=== PATIENT | male | born 1955 | race Caucasian/White ===

== ENCOUNTER 2017-07-30 02:09 | Inpatient (IN) | payer OTHER ==
[~2017-07-30] VITALS: Ht 182.9 cm; Wt 89.8 kg
[~2017-07-30 02:09] MED LIST: ASPI325T70 PO; BUPR150T8 PO; CETI10CA PO; CHOL100014 PO; COLL30OI TP; DOXA1TAB2 PO; DULO60CA6 PO; ESCITALOPRAM OX20 MG PO; FERR15DR4 PO; FURO-68 PO; HYDR-2758 PO; LEXAPRO10 MG PO; MELO15TA23 PO; METF500T PO; METO50TA6 PO; NITR0.4T22 SL; OLAN15TA9 PO; OLAN20TA7 PO; OLME1TAB25 PO; OMEG1CAP30 AD; OXYC-328 PO; OXYC10TA45 PO; OXYC1TAB7 PO; POTA20TA4 PO; PREG150C PO; PREG75CA PO; SIMV20TA3 PO; TAMS0.4C2 PO; TIZA4TAB8 PO; [UNRECOGNIZED DRUG - CODE] PO
[2017-07-30 05:27] VITALS: BP 167/91
[2017-07-30] MEDS ORDERED: DULO60CA6 PO (05:27)
[2017-07-30] MEDS ORDERED: PREG200C PO (05:27)
[2017-07-30] MEDS ORDERED: GLIM1TAB PO (05:27)
[2017-07-30] MEDS ORDERED: SACU1TAB4 PO (05:27)
[2017-07-30] MEDS ORDERED: ISOS30TA4 PO (05:27)
[2017-07-30] MEDS ORDERED: ARIP20TA5 PO (05:27)
[2017-07-30] MEDS ORDERED: BUPR150T11 PO (05:27)
[2017-07-30] MEDS ORDERED: OXYC-328 PO (05:27)
[2017-07-30] MEDS ORDERED: IMIP50TA3 PO (05:27)
[2017-07-30 07:00] VITALS: BP 164/96
[2017-07-30] MEDS ORDERED: NITROGLYCERIN SUBLINGUAL 0.4 MG BOTTLE OF 25. SL PRN (09:15)
--- NOTE | 2017-07-30 09:24 | PDOC1 ---
History and Physical Date of Admission Date of Admission DATE: 07/30/17 TIME: 09:17 Identification/Chief Complaint Chief Complaint chest pain Problems: Source Source: Chart review, Patient History of Present Illness History of Present Illness presented to the ER at [place] with acute chest pain, He has CAD, s/ p CABG, he has acute short and intermittent pain under his breast area. Sharp pain 7.10 , comes and goes, he cannot reproduce the pain, no associated with eating or exertion or position, He has no hx of GERD pain was across both sides of his chest last night, now just left chest, no radiation to jaw or arm, no diaphoresis or dyspnea Past Medical History Cardiovascular: CAD, CHF, MT, Hyperlipidemia, Other Pulmonary: Pneumonia GI: GERD Heme/Onc: No pertinent hx Hepatobiliary: No pertinent hx Psych: Depression Musculoskeletal: low back pain, Other Rheumatologic: No pertinent hx Infectious disease: No pertinent hx Renal/: No pertinent hx Endocrine: No pertinent hx Past Surgical History Past Surgical History: CABG, Hysterectomy Family History Family History: Other Social History ALCOHOL: none Drugs: None Current Medications Current Medications Current Medications Nicotine (Nicoderm Cq 21mg) 1 patch DAILY TD ; Start 07/30/17 at 09:00 Active Scripts Active Reported Entresto 97 mg-103 mg Tablet (Sacubitril/Valsartan) 1 Each Tablet 1 Each PO BID Bupropion Hcl Sr (Bupropion Hcl) 150 Mg Tablet.er 1 Tab PO DAILY Percocet 10-325 Mg Tablet (Oxycodone/Acetaminophen) 1 Each Tablet 1 Tab PO QID Lyrica (Pregabalin) 200 Mg Capsule 1 Cap PO TID Isosorbide Mononitrate Er (Isosorbide Mononitrate) 30 Mg Tab.er.24h 1 Tab PO DAILY Imipramine Hcl 50 Mg Tablet 50 Mg PO BID Cymbalta (Duloxetine Hcl) 60 Mg Capsule.dr 1 Cap PO DAILY Abilify (Aripiprazole) 20 Mg Tablet 20 Mg PO HS Amaryl (Glimepiride) 1 Mg Tablet 2 Tab PO BID NITROGLYCERIN SubLingual (Nitroglycerin) 0.4 Mg Tab.subl 0.4 Mg SL PRN Zanaflex (Tizanidine Hcl) 4 Mg Tablet 4 Mg PO TID Metoprolol Tartrate 50 Mg Tablet 50 Mg PO BID Simvastatin 20 Mg Tablet 20 Mg PO DAILY Tamsulosin Hcl 0.4 Mg Cap.er.24h 0.4 Mg PO DAILY Klor-Con M20 (Potassium Chloride) 20 Meq Tab.er.prt 20 Meq PO DAILY Lasix (Furosemide) 40 Mg Tablet 40 Mg PO DAILY Aspirin Buffered 325 Mg Tab (Aspirin/Calcium Carbonate/Mag) 325 Mg Tablet 325 Mg PO DAILY Allergies Allergies: Coded Allergies: gabapentin (Verified Allergy, Mild, 12/27/13) oxymorphone (Verified Allergy, Unknown, 07/30/17) ROS General: No: Chills, Night Sweats, Fatigue, Malaise, Appetite, Other PSYCHOLOGICAL ROS: No: Anxiety, Behavioral Disorder, Concentration difficultie , Decreased libido, Depression, Disorientation, Hallucinations, Hostility, Irritablity, Memory difficulties, Mood Swings, Obsessive thoughts, Physical abuse, Sexual abuse, Sleep disturbances, Suicidal ideation, Other Eyes: No Blurry vision, No Decreased vision, No Double vision, No Dry eyes, No Excessive tearing, No Eye Pain, No Itchy Eyes, No Loss of vision, No Photophobia , No Scotomata, No Uses contacts, No Uses glasses, No Other HEENT: No: Heacaches, Visual Changes, Hearing change, Nasal congestion, Nasal discharge, Oral lesions, Sinus pain, Sore Throat, Epistaxis, Sneezing, Snoring, Tinnitus, Vertigo, Vocal changes, Other Respiratory: YES: Tachypnea, No: Cough, Hemoptysis, Orthopnea, Pleuritic Pain, Shortness of breath, SOB with excertion, Sputum Changes, Stridor, Wheezing, Other Cardiovascular: yes Chest Pain, No Palpitations, No Orthopnea, No Paroxysmal Noc. Dyspnea, No Edema, No Lt Headedness, No Other Gastrointestinal: Yes Nausea, Yes Abdominal Pain, No Vomiting, No Diarrhea, No Constipation, No Melena, No Hematochezia, No Other Genitourinary: No Dysuria, No Frequency, No Incontinence, No Hematuria, No Retention, No Discharge, No Urgency, No Pain, No Flank Pain, No Other, No , No , No , No , No , No , No Musculoskeletal: No Gait Disturbance, No Joint Pain, No Joint Stiffness, No Joint Swelling, No Muscle Pain, No Muscular Weakness, No Pain In:, No Swelling In:, No Other Neurological: No Behavorial Changes, No Bowel/Bladder ControlChng, No Confusion , No Dizziness, No Gait Disturbance, No Headaches, No Impaired Coord/balance, No Memory Loss, No Numbness/Tingling, No Seizures, No Speech Problems, No Tremors, No Visual Changes, No Weakness, No Other Skin: No Dry Skin, No Eczema, No Hair Changes, No Lumps, No Mole Changes, No Mottling, No Nail Changes, No Pruritus, No Rash, No Skin Lesion Changes, No Other, No Acne Physical Exam General: Alert, Cooperative, mild distress HEENT: EOMI Lungs: Normal air movement Heart: S1S2, no gallops Abdomen: Normal bowel sounds Extremities: No clubbing, No edema Skin: No rashes, No breakdown, No significant lesion Neuro: Normal speech, Normal tone, Cranial nerves 3-12 NL Psych/Mental Status: Mental status NL, Mood NL Vitals Vitals Vital Signs Date Time Temp Pulse Resp B/P (MAP) Pulse Ox O2 Delivery O2 Flow Rate FiO2 07/30/17 07:39 Room Air 07/30/17 07:00 98.4 59 17 164/96 (118) 95 98.4 Labs Labs Laboratory Tests Test 07/30/17 06:35 07/30/17 08:00 Troponin I Quantitative 0.020 ng/mL (0.000-0.055) < 0.017 ng/mL (0.000-0.055) Laboratory Tests Test 07/30/17 06:35 07/30/17 08:00 Troponin I Quantitative 0.020 ng/mL (0.000-0.055) < 0.017 ng/mL (0.000-0.055) VTE Prophylaxis Ordered VTE Prophylaxis Devices: No VTE Pharmacological Prophylaxi: Yes Assessment/Plan Assessment/Plan chest pain, angina, not reproducible CAD, hx CABG r/o ACS bipolar depression, on cymbalta and Lyrica and Ability 20 he has chronic back pain from back injury, had worked as an automotive parts counter assistant for [employer] Burrows MD Jul 30, 2017 09:24
[2017-07-30 09:33] LABS: BASO # 0.1 x10^3/uL (0.0-0.2); BASO % 1 % (0-3); EOS % 6 % (0-3); HEMATOCRIT 48.1 % (39.0-53.0); HEMOGLOBIN 16.2 g/dL (13.0-17.5); LYMPH % 37 % (24-48); MEAN CORPUSCULAR HEMOGLOBIN 32 pg (25-35); MEAN CORPUSCULAR HGB CONC 34 g/dL (31-37); MEAN CORPUSCULAR VOLUME 95 fL (79-100); MONO % 10 % (0-9); NEUT % 46 % (31-73); PLATELET COUNT 203 x10^3/uL (140-400); RED BLOOD COUNT 5.05 x10^6/uL (4.30-5.70); RED CELL DISTRIBUTION WIDTH 13.3 % (11.5-14.5); WHITE BLOOD COUNT 8.2 x10^3/uL (4.0-11.0)
[2017-07-30 09:40] LABS: ALBUMIN 3.5 g/dL (3.4-5.0); ALBUMIN/GLOBULIN RATIO 1.1 (1.0-1.7); CALCIUM 8.8 mg/dL (8.5-10.1); GFR 75.7; POTASSIUM 4.4 mmol/L (3.5-5.1); TOTAL BILIRUBIN 0.2 mg/dL (0.2-1.0); TOTAL PROTEIN 6.6 g/dL (6.4-8.2)
[2017-07-30 09:42] LABS: CHOLESTEROL/HDL RATIO 5.7
[2017-07-30] MEDS: NICOTINE 21MG PATCH. TD SCH (09:46)
[2017-07-30] MEDS: buPROPion SR 150 MG TABLET.SA PO SCH (09:46)
[2017-07-30] MEDS: DULoxetine HCL 30 MG CAPSULE.DR PO SCH (09:46)
[2017-07-30] MEDS: ASPIRIN ENTERIC COATED 325 MG TABLET.DR. PO SCH (09:47)
[2017-07-30] MEDS: PREGABALIN 50 MG CAPSULE PO SCH ×3 (09:47→20:19)
[2017-07-30] MEDS: GLIMEPIRIDE 2 MG TABLET. PO SCH ×2 (09:47→20:20)
[2017-07-30] MEDS: tiZANidine 4 MG TABLET. PO SCH ×3 (09:48→20:20)
[2017-07-30] MEDS: IMIPRAMINE 25 MG TABLET PO SCH ×2 (09:49→20:21)
[2017-07-30] MEDS ORDERED: ISOSORBIDE MONONITRATE ER 30 MG TAB.ER.24H PO SCH (10:00)
[2017-07-30] MEDS ORDERED: OXYC20TA34 PO (10:02)
[2017-07-30] MEDS: oxyCODONE ER 10 MG TAB.ER.12H PO SCH ×2 (10:26→20:23)
[2017-07-30] MEDS ORDERED: oxyCODONE ER 10 MG TAB.ER.12H PO SCH ×2 (10:30)
[2017-07-30 10:52] VITALS: BP 195/105
--- NOTE | 2017-07-30 11:16 | PDOC2 ---
CARDIAC CONSULT DATE OF CONSULT Date of Consult DATE: 07/30/17 TIME: 11:08 REASON FOR CONSULT Reason for Consult: Chest pain REFERRING PHYSICIAN Referring Physician: Ethan SOURCE Source: Chart review, Patient HISTORY OF PRESENT ILLNESS HISTORY OF PRESENT ILLNESS This is a pleasant 61 yo male admitted for complains of chest pain. He initially was admitted at [place] then transferred here for further testings. Reports that he has been having sharp chest pain across his chest in the last 2 weeks. He was not worried about this till yesterday when it became more frequent and sustained. He took x2 NTG which relieved it. Denies any heartburn , nausea, vomiting, palpitations, dizziness. Denies any fall or injury or fever. He has been compliant with his medications but continues to smoke tobacco and does not check his BP. Presently denies any discomfort. Positive for orthopnea. PAST MEDICAL HISTORY Past Medical History Cardiovascular: CAD (CABG 01/2013 with OLEARY to LAD; radial to OM; SVG to RCA), CHF (chronic systolic), OR (NSTEMI - 01/25/2013), Hyperlipidemia, Other ( ischemic cardiomyopathy; ICD) Pulmonary: Pneumonia (bilateral - 01/23/2013) GI: GERD Heme/Onc: No pertinent hx Hepatobiliary: No pertinent hx Psych: Depression Musculoskeletal: low back pain, Other (has back stimulator), OA Rheumatologic: No pertinent hx Infectious disease: No pertinent hx ENT: No pertinent hx Renal/: BPH Endocrine: DM2 Dermatology: No pertinent hx PAST SURGICAL HISTORY Past Surgical History CABG, back surgery; T & A FAMILY HISTORY Family History Noncontributory to CV SOCIAL HISTORY Social History Smoke: <1 pack per day (1/2 ppd) ALCOHOL: none Drugs: None Lives: Alone CURRENT MEDICATIONS CURRENT MEDICATIONS Current Medications Medications (Trade) Dose Ordered Sig/Karla Route PRN Reason Start Time Stop Time Status Last Admin Dose Admin Nicotine (Nicoderm Cq 21mg) 1 patch DAILY TD 07/30/17 09:00 07/30/17 09:46 Bupropion HCl (Wellbutrin Sr) 150 mg DAILY PO 07/30/17 10:00 07/30/17 09:46 Isosorbide Mononitrate (Imdur) 30 mg DAILY PO 07/30/17 10:00 07/30/17 09:48 Tizanidine HCl (Zanaflex) 4 mg TID PO 07/30/17 10:00 07/30/17 09:48 Aspirin (Ecotrin) 325 mg DAILYWBKFT PO 07/30/17 10:00 07/30/17 09:47 Duloxetine HCl (Cymbalta) 60 mg DAILY PO 07/30/17 10:00 07/30/17 09:46 Glimepiride (Amaryl) 2 mg BID PO 07/30/17 10:00 07/30/17 09:47 Imipramine HCl (Tofranil) 50 mg BID PO 07/30/17 09:30 07/30/17 09:49 Pregabalin (Lyrica) 200 mg TID PO 07/30/17 09:30 07/30/17 09:47 Oxycodone HCl (OxyCONTIN) 20 mg Q12HR PO 07/30/17 10:30 07/30/17 10:26 ALLERGIES ALLERGIES: Coded Allergies: gabapentin (Verified Allergy, Mild, 12/27/13) oxymorphone (Verified Allergy, Unknown, 07/30/17) ROS Review of System 14 point ROS evaluated with pertinent positives noted per HPI PHYSICAL EXAM General: Alert, Oriented X3, Cooperative HEENT: Atraumatic, Mucous membr. moist/pink Lungs: Other (diminished bases) Heart: Regular rate (SR), Normal S1, Normal S2 Abdomen: Soft, No tenderness Extremities: No cyanosis, Other (1+ bilateral LE pitting edema) Skin: No breakdown, No significant lesion Neuro: Normal speech, Sensation intact Psych/Mental Status: Mental status NL, Mood NL MUSCULOSKELETAL: Osteoarthritic changes both hands VITALS VITALS Vital Signs Date Time Temp Pulse Resp B/P (MAP) Pulse Ox O2 Delivery O2 Flow Rate FiO2 07/30/17 10:52 98.6 70 18 195/105 (135) 98 Room Air 98.6 LABS Lab: Laboratory Tests Test 07/30/17 06:35 07/30/17 08:00 White Blood Count 8.2 x10^3/uL (4.0-11.0) Red Blood Count 5.05 x10^6/uL (4.30-5.70) Hemoglobin 16.2 g/dL (13.0-17.5) Hematocrit 48.1 % (39.0-53.0) Mean Corpuscular Volume 95 fL (79-100) Mean Corpuscular Hemoglobin 32 pg (25-35) Mean Corpuscular Hemoglobin Concent 34 g/dL (31-37) Red Cell Distribution Width 13.3 % (11.5-14.5) Platelet Count 203 x10^3/uL (140-400) Neutrophils (%) (Auto) 46 % (31-73) Lymphocytes (%) (Auto) 37 % (24-48) Monocytes (%) (Auto) 10 % (0-9) Eosinophils (%) (Auto) 6 % (0-3) Basophils (%) (Auto) 1 % (0-3) Neutrophils # (Auto) 3.7 x10^3uL (1.8-7.7) Lymphocytes # (Auto) 3.0 x10^3/uL (1.0-4.8) Monocytes # (Auto) 0.8 x10^3/uL (0.0-1.1) Eosinophils # (Auto) 0.5 x10^3/uL (0.0-0.7) Basophils # (Auto) 0.1 x10^3/uL (0.0-0.2) Sodium Level 141 mmol/L (136-145) Potassium Level 4.4 mmol/L (3.5-5.1) Chloride Level 103 mmol/L (98-107) Carbon Dioxide Level 33 mmol/L (21-32) Anion Gap 5 (6-14) Blood Urea Nitrogen 16 mg/dL (8-26) Creatinine 1.0 mg/dL (0.7-1.3) Estimated GFR (Cockcroft-Gault) 75.7 BUN/Creatinine Ratio 16 (6-20) Glucose Level 85 mg/dL (70-99) Calcium Level 8.8 mg/dL (8.5-10.1) Total Bilirubin 0.2 mg/dL (0.2-1.0) Aspartate Amino Transf (AST/SGOT) 20 U/L (15-37) Alanine Aminotransferase (ALT/SGPT) 20 U/L (16-63) Alkaline Phosphatase 90 U/L (46-116) Troponin I Quantitative 0.020 ng/mL (0.000-0.055) < 0.017 ng/mL (0.000-0.055) Total Protein 6.6 g/dL (6.4-8.2) Albumin 3.5 g/dL (3.4-5.0) Albumin/Globulin Ratio 1.1 (1.0-1.7) Triglycerides Level 171 mg/dL (0-150) Cholesterol Level 177 mg/dL (0-200) LDL Cholesterol, Calculated 112 mg/dL (0-100) VLDL Cholesterol, Calculated 34 mg/dL (0-40) Non-HDL Cholesterol Calculated 146 mg/dL (0-129) HDL Cholesterol 31 mg/dL (40-60) Cholesterol/HDL Ratio 5.7 ECHOCARDIOGRAM ECHOCARDIOGRAM <Conclusion> Technically difficult study aided by the use of Definity. The left ventricle is normal size. Left ventricle systolic function is moderately impaired. The Ejection Fraction is estimated at 35%. There is no significant aortic valvular stenosis. Doppler and Color Flow revealed no significant aortic regurgitation. Doppler and Color Flow revealed trace mitral regurgitation. Doppler and Color Flow revealed trace tricuspid valve regurgitation. DATE: 03/20/16 1733 STRESS TEST STRESS TEST Conclusion 1. Large in size and severe in intensity fixed anterior, septal, apical and apical anterior defect with abnormal wall motion to suggest previous infarction. No evidence of significant ischemia appreciated. 2. Ejection fraction calculated to be 32% with abnormal wall motion as described above on gated SPECT images. 3. Abnormal nuclear stress test consistent with previous infarction. 4. Findings consistent with a low risk scan. DATE: 10/03/13 1208 ASSESSMENT/PLAN ASSESSMENT/PLAN 1. Chest pain: negative for PE per CTA. Likely induced by uncontrolled HTN 2. CAD: CABG in 2012 3. ICM: last known EF 35%. Medtr[employer] 4. AICD in situ 5. Accelerated HTN: likely from inadequate coverage. 6. DM2/HLP 7. Mild Acute on chronic systolic CHF: appears compensated presently 8. Suspecting COPD with continued tobaccoism Recommendations 1. TTE, MPI today 2. Increase zocor, imdur, and continue high dose entresto. Lasix. 3. Continue with ASA. 4. Smoking cessation, continue with home daily wt, FR, and encourage daily home BP monitoring. 5. Interrogate device Problems: ANJALI ZAMAN APRN Jul 30, 2017 11:16
[2017-07-30] MEDS ORDERED: ISOSORBIDE MONONITRATE ER 30 MG TAB.ER.24H PO ONE (11:30)
[2017-07-30] MEDS: SACUBITRIL/VALSARTAN 49/51MG TABLET. PO SCH ×2 (11:57→20:22)
[2017-07-30] MEDS: METOPROLOL TART IMMED RELEASE 50 MG TABLET. PO SCH ×2 (11:59→20:21)
[2017-07-30] MEDS ORDERED: REGADENOSON 0.4 MG/5 ML DISP.SYRIN. IV ONE (12:15)
[2017-07-30] MEDS: oxyCODONE/APAP 10/325 1 TAB TABLET PO SCH ×3 (12:55→21:00)
--- NOTE | 2017-07-30 13:31 | CARD ---
APPROVED REPORT EXAM: Two-dimensional and M-mode echocardiogram with Doppler and color Doppler. Other Information Quality : Average Rhythm : NSRTechnically limited study due to body habitus. INDICATION Chest Pain 2D DIMENSIONS RVDd3.4 (2.9-3.5cm)Left Atrium(2D)3.7 (1.6-4.0cm) IVSd1.0 (0.7-1.1cm)Aortic Root(2D)3.7 (2.0-3.7cm) LVDd5.8 (3.9-5.9cm)LVOT Diameter2.3 (1.8-2.4cm) PWd1.0 (0.7-1.1cm)LVDs4.7 (2.5-4.0cm) FS (%) 19.0 %SV63.6 ml LVEF(%)39.5 (>50%) Aortic Valve AoV Peak Porfirio.69.5cm/sAoV VTI12.9cm AO Peak GR.1.9mmHgLVOT Peak Porfirio.45.7cm/s LVOT VTI 8.63cmAO Mean GR.1mmHg FITO (VMAX)2.77ru3QVI (VTI)2.68cm2 Mitral Valve MV E Ceqtafni22.1cm/sMV DECEL [id number] MV A Xfolvsui57.6cm/sMV ODE710ue E/A Ratio0.6MV A Vojunirh810eg MVA (PHT)1.63cm2 TDI E/Lateral E'7.0E/Medial E'8.8 Pulmonary Valve PV Peak Nwrcmkyw40.3cm/sPV Peak Grad.3mmHg RVOT VTI12.0cm Tricuspid Valve TR P. [place]422ye/sRAP ODZTDLTW4yeBo TR Peak Gr.14ofHfFAYY85doWd LEFT VENTRICLE The left ventricle is normal size. There is normal left ventricular wall thickness. Left ventricle sy stolic function is moderate to severely impaired. The Ejection Fraction is 20-25%. There is severe gl obal hypokinesis. Tissue Doppler imaging reveals moderate left ventricular diastolic dysfunction. The re is no ventricular septal defect visualized. RIGHT VENTRICLE The right ventricle is normal size. The right ventricular systolic function is normal. There is a pac emaker lead seen in the right ventricle and atrium. ATRIA The left atrium size is normal. The right atrium size is normal. The interatrial septum is intact wit h no evidence for an atrial septal defect or patent foramen ovale as noted on 2-D or Doppler imaging. AORTIC VALVE The aortic valve is mildly to moderately sclerotic. The aortic valve is trileaflet. Doppler and Color Flow revealed trace aortic regurgitation. There is no significant aortic valvular stenosis. MITRAL VALVE Mitral annular calcification is mild. There is no mitral valve stenosis. Doppler and Color Flow revea led no mitral valve regurgitation noted. TRICUSPID VALVE The tricuspid valve is not well visualized. Doppler and Color Flow revealed trace tricuspid regurgita tion. The PA pressure was estimated at 19 mmHg. There is no tricuspid valve stenosis. PULMONIC VALVE The pulmonic valve is not well visualized. Doppler and Color Flow revealed mild pulmonic valvular reg urgitation. There is no pulmonic valvular stenosis. GREAT VESSELS The aortic root is normal in size. The ascending aorta is normal in size. The IVC was not visualized. PERICARDIAL EFFUSION There is no evidence of significant pericardial effusion. Critical Notification Critical Value: No <Conclusion> Left ventricle systolic function is moderate to severely impaired. The Ejection Fraction is 20-25%. There is severe global hypokinesis. There is a pacemaker lead seen in the right ventricle and atrium.
[2017-07-30 14:41] VITALS: BP 142/80
[2017-07-30] MEDS ORDERED: MORPHINE SULFATE 4 MG/ML DISP.SYRIN. IV PRN (15:00)
--- NOTE | 2017-07-30 17:04 | RAD ---
APPROVED REPORT Test Type: Pharmacological Stress Nurse/Tech: Quita Pruitt R.N. Test Indications: c/p Cardiac History: htn, CABG,PPM,.smoker,DM Medications: See Electronic Medical Record Medical History: See Electronic Medical Record Resting ECG: SR w/pvc's. has ST elevation in leads V2-V4 , II, III,AVF Resting Heart Rate: 74 bpm Resting Blood Pressure: 131/79mmHg Pretest Chest Pain: No chest pain Nurse/Tech Notes S1S2, lungs CTA Consent: The procedure was explained to the patient in lay terms. Informed consent was witnessed. Yonathan eout was entered into [employer]. History and Stress Test performed by RT Felicia (Emil) (N) Pharm. Details Pharmacologic stress testing was performed using 0.4mg per 5ml of regadenoson given intravenously ove r 7-10 seconds. Stress Symptoms slight SOB for less than 1 minute POST EXERCISE Reason for Termination: Infusion complete Max HR: 86 bpm Max Blood Pressure: 148/85mmHg Blood Pressure response to exercise: Normal blood pressure response during stress. Heart Rate response to exercise: wnl Chest Pain: No. Arrhythmia: No. no changes from baseline ST Change: No. no changes from above noted abnormal ones INTERPRETATION Stress EKG Conclusion: The resting EKG shows a sinus rhythm, Q waves in the septals leads and ST albrecht ges in the inferior and anteroseptal leads. The stress EKG shows no significant changes from baseline. Abnormal resting EKG but no EKG changes consistent with stress induced ischemia. Imaging Protocol IMAGE PROTOCOL: Rest Tc-99m/stress Tc-99m 1 day Rest: Stress: Viability: Radiopharm.Tc99m YaotresndAr58a Sestamibi Dose10.5mCi 33mCi Duration 15min. 10min. Img Date 07/30/2017 07/30/2017 Inj-Img Vkku82vvu. 60min. Rest Admin Site:IV - Right AntecubitalAdministrator:RT Felicia (Emil)(N) Stress Admin Site: IV - Right AntecubitalAdministrator: RT Felicia (Emil)(N) STRESS DATA End Diast. Vol.215.0mlAv. Heart Rate64.0bpm End Syst. Vol.143.0mlCO Index BSA4.6L/min Myocardial Muja738.0gEject. Upgushiu53.0% Stress Rates Pk. Fill Rate1.57EDV/secLVtime Pk. Fill 114.58msec Pk. Empty Rate1.93ESV/secLVtime Pk. Ysjfg963.48msec 1/3 Pk. Fill1.06EDV/sec Stress Scores Regional WT2.00Summed WT29.00 Regional WM0.00Summed WM30.00 LV Perfusion The stress scans show an inferior, septal and apical defect. The rest scans show an inferior, septal and apical defect. Nuclear imaging show a previous infact but no reversible ischemia. Wall Motion LV function is decreased at 33% with qblynkot-pzulrs-fqqqng hypokinesis. LV Perf. Quant 17 Seg. SSS23.00 17 Seg. SRS22.00 17 Seg. SDS2.00 Stress Defect Extent (% LAD)55.00Rest Defect Extent (% LAD)51.90Rev. Defect Extent (% LAD)0.60 Stress Defect Extent (% LCX) 13.80Rest Defect Extent (% LCX)12.50Rev. Defect Extent (% LCX)1.30 Stress Defect Extent (% RCA)50.00Rest Defect Extent (% RCA)50.00Rev. Defect Extent (% RCA)1.10 Stress Defect Extent (% RAY)45.90Rest Defect Extent (% RAY)45.00Rev. Defect Extent (% RAY)0.70 Conclusion 1. Abnormal resting EKG but no EKG evidence of stress induced ischemia. 2. Nuclear imaging shows no reversible ischemia. 3. Nuclear imaging shows a previous infarct in the mzpmfyef-buubbp-dvaczb region. 4. LV systolic function is decreased with an ejection fraction of 33% and hypokinesis in the inferior -septal-apical region. 5. Moderate to moderately low risk Lexiscan test consistent with a previous infarct and decreased LV function but with no evidence of reversible ischemia.
[2017-07-30] MEDS: LIDOCAINE (700MG/PATCH) PATCH. TD SCH (17:20)
[2017-07-30 19:51] VITALS: BP 159/89
[2017-07-30] MEDS ORDERED: SIMVASTATIN 40 MG TABLET. PO SCH (21:00)
[2017-07-30] MEDS ORDERED: OXYCODONE HCL 20 MG PO SCH ×2 (21:00)
[2017-07-30 23:26] VITALS: BP 154/91
[2017-07-31 03:30] VITALS: BP 140/75
[2017-07-31 07:29] VITALS: BP 152/84
[2017-07-31] MEDS: PREGABALIN 50 MG CAPSULE PO SCH (08:40)
[2017-07-31] MEDS: tiZANidine 4 MG TABLET. PO SCH (08:42)
[2017-07-31] MEDS: SACUBITRIL/VALSARTAN 49/51MG TABLET. PO SCH (08:42)
[2017-07-31] MEDS: DULoxetine HCL 30 MG CAPSULE.DR PO SCH (08:43)
[2017-07-31] MEDS: oxyCODONE ER 10 MG TAB.ER.12H PO SCH (08:43)
[2017-07-31] MEDS: IMIPRAMINE 25 MG TABLET PO SCH (08:43)
[2017-07-31] MEDS: buPROPion SR 150 MG TABLET.SA PO SCH (08:43)
[2017-07-31] MEDS: ASPIRIN ENTERIC COATED 325 MG TABLET.DR. PO SCH (08:44)
[2017-07-31 08:46] VITALS: BP 152/84
[2017-07-31] MEDS: GLIMEPIRIDE 2 MG TABLET. PO SCH (08:46)
[2017-07-31] MEDS: METOPROLOL TART IMMED RELEASE 50 MG TABLET. PO SCH (08:46)
[2017-07-31] MEDS: oxyCODONE/APAP 10/325 1 TAB TABLET PO SCH (08:47)
[2017-07-31] MEDS: NICOTINE 21MG PATCH. TD SCH (08:48)
[2017-07-31] MEDS: LIDOCAINE (700MG/PATCH) PATCH. TD SCH (08:49)
[2017-07-31] MEDS ORDERED: TAMSULOSIN 0.4 MG CAP.ER.24H. PO SCH (09:00)
[2017-07-31] MEDS ORDERED: ISOSORBIDE MONONITRATE ER 30 MG TAB.ER.24H PO SCH (09:00)
[2017-07-31] MEDS ORDERED: LOSARTAN POTASSIUM 50 MG TABLET. PO SCH (09:00)
[2017-07-31] MEDS ORDERED: FUROSEMIDE 40 MG TABLET. PO SCH (09:00)
[2017-07-31] MEDS ORDERED: ARIPiprazole 5 MG TABLET PO SCH (09:00)
--- NOTE | 2017-07-31 10:03 | PDOC3 ---
Discharge Summary Visit Information Date of Admission: Jul 30, 2017 Date of Discharge: Jul 31, 2017 Admitting Diagnosis: chest pain Final Diagnosis chest pain, angina, stable CAD, hx CABG bipolar depression, on cymbalta and Lyrica and Ability 20 he has chronic back pain from back injury, Brief Hospital Course Allergies Allergies Coded Allergies Type Severity Reaction Last Updated Verified gabapentin Allergy Mild 12/27/13 Yes oxymorphone Allergy Unknown 07/30/17 Yes Vital Signs Vital Signs Date Time Temp Pulse Resp B/P (MAP) Pulse Ox O2 Delivery O2 Flow Rate FiO2 07/31/17 09:46 95 Room Air 07/31/17 08:46 78 152/84 07/31/17 07:29 97.4 20 97.4 Lab Results Laboratory Tests Test 07/30/17 06:35 07/30/17 08:00 07/31/17 07:46 White Blood Count 8.2 x10^3/uL (4.0-11.0) Red Blood Count 5.05 x10^6/uL (4.30-5.70) Hemoglobin 16.2 g/dL (13.0-17.5) Hematocrit 48.1 % (39.0-53.0) Mean Corpuscular Volume 95 fL (79-100) Mean Corpuscular Hemoglobin 32 pg (25-35) Mean Corpuscular Hemoglobin Concent 34 g/dL (31-37) Red Cell Distribution Width 13.3 % (11.5-14.5) Platelet Count 203 x10^3/uL (140-400) Neutrophils (%) (Auto) 46 % (31-73) Lymphocytes (%) (Auto) 37 % (24-48) Monocytes (%) (Auto) 10 % (0-9) Eosinophils (%) (Auto) 6 % (0-3) Basophils (%) (Auto) 1 % (0-3) Neutrophils # (Auto) 3.7 x10^3uL (1.8-7.7) Lymphocytes # (Auto) 3.0 x10^3/uL (1.0-4.8) Monocytes # (Auto) 0.8 x10^3/uL (0.0-1.1) Eosinophils # (Auto) 0.5 x10^3/uL (0.0-0.7) Basophils # (Auto) 0.1 x10^3/uL (0.0-0.2) Sodium Level 141 mmol/L (136-145) Potassium Level 4.4 mmol/L (3.5-5.1) Chloride Level 103 mmol/L (98-107) Carbon Dioxide Level 33 mmol/L (21-32) Anion Gap 5 (6-14) Blood Urea Nitrogen 16 mg/dL (8-26) Creatinine 1.0 mg/dL (0.7-1.3) Estimated GFR (Cockcroft-Gault) 75.7 BUN/Creatinine Ratio 16 (6-20) Glucose Level 85 mg/dL (70-99) Calcium Level 8.8 mg/dL (8.5-10.1) Magnesium Level 2.3 mg/dL (1.8-2.4) Total Bilirubin 0.2 mg/dL (0.2-1.0) Aspartate Amino Transf (AST/SGOT) 20 U/L (15-37) Alanine Aminotransferase (ALT/SGPT) 20 U/L (16-63) Alkaline Phosphatase 90 U/L (46-116) Troponin I Quantitative 0.020 ng/mL (0.000-0.055) < 0.017 ng/mL (0.000-0.055) Total Protein 6.6 g/dL (6.4-8.2) Albumin 3.5 g/dL (3.4-5.0) Albumin/Globulin Ratio 1.1 (1.0-1.7) Triglycerides Level 171 mg/dL (0-150) Cholesterol Level 177 mg/dL (0-200) LDL Cholesterol, Calculated 112 mg/dL (0-100) VLDL Cholesterol, Calculated 34 mg/dL (0-40) Non-HDL Cholesterol Calculated 146 mg/dL (0-129) HDL Cholesterol 31 mg/dL (40-60) Cholesterol/HDL Ratio 5.7 Glucose (Fingerstick) 93 mg/dL (70-99) Laboratory Tests Test 07/31/17 07:46 Glucose (Fingerstick) 93 mg/dL (70-99) Brief Hospital Course Mr. Antonio is a 61 old admit chest pain back pain severe, had trouble doing stress test, stress test low prob Dr. fe wang for back pain, exercises given, pain better with lidoderm patch f/u outpatient Discharge Information Condition at Discharge: Improved Follow Up: Weeks Disposition/Orders: D/C to Home Scheduled Aripiprazole (Abilify), 20 MG PO HS, (Reported) Aspirin/Calcium Carbonate/Mag (Aspirin Buffered 325 Mg Tab), 325 MG PO DAILY, ( Reported) Bupropion Hcl (Bupropion Hcl Sr), 1 TAB PO DAILY, (Reported) Duloxetine Hcl (Cymbalta), 1 CAP PO DAILY, (Reported) Furosemide (Lasix), 40 MG PO DAILY, (Reported) Glimepiride (Amaryl), 2 TAB PO BID, (Reported) Imipramine Hcl (Imipramine Hcl), 50 MG PO BID, (Reported) Isosorbide Mononitrate (Isosorbide Mononitrate Er), 1 TAB PO DAILY, (Reported) Metoprolol Tartrate (Metoprolol Tartrate), 50 MG PO BID, (Reported) Nitroglycerin (NITROGLYCERIN SubLingual), 0.4 MG SL PRN, (Reported) Oxycodone Hcl (Oxycontin), 20 MG PO BID, (Reported) Oxycodone/Apap 10-325 (Percocet 10-325 Mg Tablet), 1 TAB PO QID, (Reported) Potassium Chloride (Klor-Con M20), 20 MEQ PO DAILY, (Reported) Pregabalin (Lyrica), 1 CAP PO TID, (Reported) Sacubitril/Valsartan (Entresto 97 mg-103 mg Tablet), 1 EACH PO BID, (Reported) Simvastatin (Simvastatin), 20 MG PO DAILY, (Reported) Tamsulosin Hcl (Tamsulosin Hcl), 0.4 MG PO daily , (Reported) Tizanidine Hcl (Zanaflex), 4 MG PO TID, (Reported) Patient Instructions Patient Instructions < 30 mn LUISA QUINN MD Jul 31, 2017 10:03
--- NOTE | 2017-07-31 10:18 | PDOC ---
PROGRESS NOTES Subjective Subjective Chest pain resolved. Patient feeling much better. Objective Objective Vital Signs Date Time Temp Pulse Resp B/P (MAP) Pulse Ox O2 Delivery O2 Flow Rate FiO2 07/31/17 09:46 95 Room Air 07/31/17 08:46 78 152/84 07/31/17 07:29 97.4 20 97.4 Intake and Output 07/31/17 07:00 Intake Total 1420 ml Output Total 700 ml Balance 720 ml Intake Oral 1420 ml Output Urine Total 700 ml # Voids 3 Physical Exam Abdomen: Soft, No tenderness Heart: Regular rate (SR), Normal S1, Normal S2 Extremities: No cyanosis, Other (1+ bilateral LE pitting edema) General: Alert, Oriented X3, Cooperative HEENT: Atraumatic, Mucous membr. moist/pink Lungs: Other (diminished bases) MUSCULOSKELETAL: Osteoarthritic changes both hands Neuro: Normal speech, Sensation intact Psych/Mental Status: Mental status NL, Mood NL Skin: No breakdown, No significant lesion Assessment Assessment 1. Chest pain: CAD: CABG in 2012, negative for PE per CTA. Likely induced by uncontrolled HTN. Symptoms improved since admission. Lexiscan nuclear stress test did not show any significant ischemia. 2. Chronic systolic heart failure, ischemic cardiomyopathy: Clinically well compensated. 2-D echo showed LVEF 20-25%. Continue current medical regimen. 3. AICD in situ, stable 4. Accelerated HTN: Better controlled since admission 5. DM2/HLP: Per PCP Okay for discharge from cardiac standpoint. Comment Review of Relevant I have reviewed the following items javad (where applicable) has been applied. Labs Laboratory Tests Test 07/31/17 07:46 Glucose (Fingerstick) 93 mg/dL (70-99) Medications Current Medications Aripiprazole (Abilify) 20 mg QHS PO Last administered on 07/31/17 08:40; Start 07/31/17 at 09:00 Furosemide (Lasix) 40 mg DAILY PO Last administered on 07/31/17 08:43; Start 07/31/17 at 09:00 Isosorbide Mononitrate (Imdur) 30 mg 1X ONCE PO Last administered on 11:57; Start 07/30/17 at 11:30; Stop 07/30/17 at 11:31; Status DC Isosorbide Mononitrate (Imdur) 60 mg DAILY PO Last administered on 07/31/17 08:45; Start 07/31/17 at 09:00 Lidocaine (Lidoderm) 1 patch DAILY TD Last administered on 07/31/17 08:49; Start 07/30/17 at 15:30 Losartan Potassium (Cozaar) 50 mg DAILY PO ; Start 07/31/17 at 09:00; Stop at 09:00; Status DC Morphine Sulfate 4 mg PRN Q2HR PRN IV PAIN; Start 07/30/17 at 15:00 Non-Formulary Medication 20 mg BID PO ; Start 07/30/17 at 21:00; Status Cancel Non-Formulary Medication 20 mg BID PO ; Start 07/30/17 at 21:00; Status UNV Oxycodone HCl (OxyCONTIN) 10 mg Q12HR PO ; Start 07/30/17 at 10:30; Stop 07/30 at 10:30; Status DC Oxycodone HCl (OxyCONTIN) 20 mg Q12HR PO ; Start 07/30/17 at 10:30; Stop 07/30 at 10:30; Status DC Oxycodone HCl (OxyCONTIN) 20 mg Q12HR PO Last administered on 07/31/17 08:43 ; Start 07/30/17 at 10:30 Oxycodone/ Acetaminophen (Percocet 10/325) 1 tab QID PO Last administered on 08:47; Start 07/30/17 at 13:00 Regadenoson (Lexiscan) 0.4 mg 1X ONCE IV Last administered on 07/30/17 13:42 ; Start 07/30/17 at 12:15; Stop 07/30/17 at 12:16; Status DC Sacubitril/ Valsartan (Entresto 49 Mg-51 Mg) 2 tab BID PO Last administered on 07/31/17 08:42; Start 07/30/17 at 12:30 Simvastatin (Zocor) 20 mg QHS PO ; Start 07/31/17 at 21:00; Stop 07/31/17 at 21:00; Status DC Simvastatin (Zocor) 40 mg QHS PO Last administered on 07/30/17 20:20; Start 07/30/17 at 21:00 Tamsulosin HCl (Flomax) 0.4 mg DAILY PO Last administered on 07/31/17t 08:44; Start 07/31/17 at 09:00 Vitals/I & O Vital Sign - Last 24 Hours 07/30/17 07/30/17 07/30/17 07/30/17 10:26 10:52 11:57 11:57 Temp 98.6 98.6 Pulse 70 87 87 Resp 18 B/P (MAP) 195/105 (135) 130/83 130/83 Pulse Ox 98 O2 Delivery Room Air Room Air 07/30/17 07/30/17 07/30/17 07/30/17 11:59 12:55 14:00 14:41 Temp 98.6 98.6 Pulse 87 93 Resp 18 B/P (MAP) 130/83 142/80 (100) Pulse Ox 96 O2 Delivery Room Air Room Air Room Air 07/30/17 07/30/17 07/30/17 07/30/17 17:20 19:51 20:00 20:21 Temp 98.6 98.6 Pulse 70 74 Resp 17 B/P (MAP) 159/89 (112) 137/89 Pulse Ox 95 O2 Delivery Room Air Room Air Room Air 07/30/17 07/30/17 07/30/17 07/31/17 20:22 20:23 23:26 00:23 Temp 98.7 98.7 Pulse 76 59 Resp 20 18 20 B/P (MAP) 137/89 154/91 (112) Pulse Ox 94 O2 Delivery Room Air 07/31/17 07/31/17 07/31/17 07/31/17 03:30 07:29 07:48 08:42 Temp 98.0 97.4 98.0 97.4 Pulse 54 78 78 Resp 18 20 B/P (MAP) 140/75 (96) 152/84 (106) 152/84 Pulse Ox 95 O2 Delivery Room Air Room Air Room Air 07/31/17 07/31/17 07/31/17 07/31/17 08:43 08:45 08:46 08:47 Pulse 78 78 B/P (MAP) 152/84 152/84 Pulse Ox 95 95 O2 Delivery Room Air Room Air 07/31/17 07/31/17 09:27 09:46 Pulse Ox 95 O2 Delivery Room Air Room Air Intake and Output 07/30/17 07/30/17 07/31/17 15:00 23:00 07:00 Intake Total 1000 ml 420 ml Output Total 700 ml Balance 1000 ml -280 ml ILENE BLANCA MD Jul 31, 2017 10:18
--- NOTE | 2017-07-31 10:21 | CONS ---
DATE OF CONSULTATION: 07/30/2017 ATTENDING PHYSICIAN: Dr. Long. The patient was seen at the request of Dr. Long for rehab evaluation about his back pain. HISTORY OF PRESENT ILLNESS: This is a 61-year-old male admitted through the Emergency Room as per transfer from [facility] with acute chest pain. He had coronary artery disease status post coronary artery bypass graft. The patient denies any radiation of pain to the extremities. He actually denies any chest pain at present time. No history of gastroesophageal reflux disease. He admits chronic lower back pain status post lumbar spine surgery done about 8 years ago in [place], [place]. It helped ease acuteness of the pain, but pain continues and he goes to [facility] where he gets OxyContin and Percocet for breakthrough pain. The patient with known coronary artery disease, congestive heart failure, myocardial infarction, hyperlipidemia, previous pneumonia, gastroesophageal reflux disease, depression, status post coronary artery bypass graft, KNOWN ALLERGIC TO GABAPENTIN AND OXYMORPHONE. The patient denies any trouble with his bowel or bladder control. He admits most of the pain is while up. He lives with his daughter. No stairs for him to manage. PHYSICAL EXAMINATION: The patient on physical examination today revealed a middle-aged male. He is alert, oriented to time, place, person and circumstance and follows commands appropriately, moves all 4 extremities voluntarily where he had 4+/5 grade muscle strength and deep tendon reflexes are 1-2+ and symmetrical and he had equal perception of touch and pinprick sensation bilaterally. He had painful limited movements of his lumbar spine without any paraspinal muscle spasm and tenderness to palpation over sacroiliac joint area. He had some redness of the skin over lower part of both legs. Other than that, his skin is intact. He is independent with bed mobility and transfers and he had painful range of motion of both lower extremities joints. ASSESSMENT: A middle-aged male with chronic lower back pain from degenerative disk disease of lumbar vertebrae without any clinical evidence of ongoing lumbar radiculopathy. The patient is status post lumbar decompression laminectomy done about 8 years ago, also with known coronary artery disease, congestive heart failure, myocardial infarction, hyperlipidemia, gastroesophageal reflux disease, pneumonia, depression, admitted with chest pain. RECOMMENDATIONS: I have reviewed with him a home program of physical modalities and stretching exercises and proper body mechanics. The patient can be discharged to home when medically stable with outpatient followup to consider sacroiliac joint injections or lumbar corset if the pain persists. Dr. Long, I appreciate asking me to participate in the care of this interesting patient. I will be glad to follow him with you as needed for the rehabilitation. PINO SOLIS MD DR: ROBI/nts JOB#: [id number] / [id number]
--- NOTE | 2017-07-31 11:30 | PDOC ---
PROGRESS NOTES Subjective Subjective He feels better. Objective Objective Vital Signs Date Time Temp Pulse Resp B/P (MAP) Pulse Ox O2 Delivery O2 Flow Rate FiO2 07/31/17 09:46 95 Room Air 07/31/17 08:46 78 152/84 07/31/17 07:29 97.4 20 97.4 Intake and Output 07/31/17 07:00 Intake Total 1420 ml Output Total 700 ml Balance 720 ml Intake Oral 1420 ml Output Urine Total 700 ml # Voids 3 Physical Exam Physical Exam He is independent with mobility and self care. Plan Plan of Care Agree with plans for home with out patient follow up. Comment Review of Relevant I have reviewed the following items javad (where applicable) has been applied. Labs Laboratory Tests Test 07/30/17 06:35 07/30/17 08:00 07/31/17 07:46 White Blood Count 8.2 x10^3/uL (4.0-11.0) Red Blood Count 5.05 x10^6/uL (4.30-5.70) Hemoglobin 16.2 g/dL (13.0-17.5) Hematocrit 48.1 % (39.0-53.0) Mean Corpuscular Volume 95 fL (79-100) Mean Corpuscular Hemoglobin 32 pg (25-35) Mean Corpuscular Hemoglobin Concent 34 g/dL (31-37) Red Cell Distribution Width 13.3 % (11.5-14.5) Platelet Count 203 x10^3/uL (140-400) Neutrophils (%) (Auto) 46 % (31-73) Lymphocytes (%) (Auto) 37 % (24-48) Monocytes (%) (Auto) 10 % (0-9) Eosinophils (%) (Auto) 6 % (0-3) Basophils (%) (Auto) 1 % (0-3) Neutrophils # (Auto) 3.7 x10^3uL (1.8-7.7) Lymphocytes # (Auto) 3.0 x10^3/uL (1.0-4.8) Monocytes # (Auto) 0.8 x10^3/uL (0.0-1.1) Eosinophils # (Auto) 0.5 x10^3/uL (0.0-0.7) Basophils # (Auto) 0.1 x10^3/uL (0.0-0.2) Sodium Level 141 mmol/L (136-145) Potassium Level 4.4 mmol/L (3.5-5.1) Chloride Level 103 mmol/L (98-107) Carbon Dioxide Level 33 mmol/L (21-32) Anion Gap 5 (6-14) Blood Urea Nitrogen 16 mg/dL (8-26) Creatinine 1.0 mg/dL (0.7-1.3) Estimated GFR (Cockcroft-Gault) 75.7 BUN/Creatinine Ratio 16 (6-20) Glucose Level 85 mg/dL (70-99) Calcium Level 8.8 mg/dL (8.5-10.1) Magnesium Level 2.3 mg/dL (1.8-2.4) Total Bilirubin 0.2 mg/dL (0.2-1.0) Aspartate Amino Transf (AST/SGOT) 20 U/L (15-37) Alanine Aminotransferase (ALT/SGPT) 20 U/L (16-63) Alkaline Phosphatase 90 U/L (46-116) Troponin I Quantitative 0.020 ng/mL (0.000-0.055) < 0.017 ng/mL (0.000-0.055) Total Protein 6.6 g/dL (6.4-8.2) Albumin 3.5 g/dL (3.4-5.0) Albumin/Globulin Ratio 1.1 (1.0-1.7) Triglycerides Level 171 mg/dL (0-150) Cholesterol Level 177 mg/dL (0-200) LDL Cholesterol, Calculated 112 mg/dL (0-100) VLDL Cholesterol, Calculated 34 mg/dL (0-40) Non-HDL Cholesterol Calculated 146 mg/dL (0-129) HDL Cholesterol 31 mg/dL (40-60) Cholesterol/HDL Ratio 5.7 Glucose (Fingerstick) 93 mg/dL (70-99) Laboratory Tests Test 07/31/17 07:46 Glucose (Fingerstick) 93 mg/dL (70-99) Medications Current Medications Nicotine (Nicoderm Cq 21mg) 1 patch DAILY TD Last administered on 07/31/17 08 :48; Start 07/30/17 at 09:00 Bupropion HCl (Wellbutrin Sr) 150 mg DAILY PO Last administered on 07/31/17 08:43; Start 07/30/17 at 10:00 Isosorbide Mononitrate (Imdur) 30 mg DAILY PO Last administered on 07/30/17 09:48; Start 07/30/17 at 10:00; Stop 07/30/17 at 11:31; Status DC Metoprolol Tartrate (Lopressor) 50 mg BID PO Last administered on 07/31/17 08 :46; Start 07/30/17 at 10:00 Nitroglycerin (Nitrostat) 0.4 mg Q2HR PRN SL pain; Start 07/30/17 at 09:15 Oxycodone/ Acetaminophen (Percocet 10/325) 1 tab QID PO Last administered on 08:47; Start 07/30/17 at 13:00 Simvastatin (Zocor) 20 mg QHS PO ; Start 07/31/17 at 21:00; Stop 07/31/17 at 21:00; Status DC Tamsulosin HCl (Flomax) 0.4 mg DAILY PO Last administered on 07/31/17 08:44; Start 07/31/17 at 09:00 Tizanidine HCl (Zanaflex) 4 mg TID PO Last administered on 07/31/17 08:42; Start 07/30/17 at 10:00 Aripiprazole (Abilify) 20 mg QHS PO Last administered on 07/31/17 08:40; Start 07/31/17 at 09:00 Aspirin (Ecotrin) 325 mg DAILYWBKFT PO Last administered on 07/31/17 08:44; Start 07/30/17 at 10:00 Duloxetine HCl (Cymbalta) 60 mg DAILY PO Last administered on 07/31/17 08:43 ; Start 07/30/17 at 10:00 Glimepiride (Amaryl) 2 mg BID PO Last administered on 07/31/17 08:46; Start 07/30/17 at 10:00 Imipramine HCl (Tofranil) 50 mg BID PO Last administered on 07/31/17 08:43; Start 07/30/17 at 09:30 Pregabalin (Lyrica) 200 mg TID PO Last administered on 07/31/17 08:40; Start 07/30/17 at 09:30 Non-Formulary Medication 20 mg BID PO ; Start 07/30/17 at 21:00; Status Cancel Oxycodone HCl (OxyCONTIN) 10 mg Q12HR PO ; Start 07/30/17 at 10:30; Stop 07/30 at 10:30; Status DC Non-Formulary Medication 20 mg BID PO ; Start 07/30/17 at 21:00; Status UNV Oxycodone HCl (OxyCONTIN) 20 mg Q12HR PO ; Start 07/30/17 at 10:30; Stop 07/30 at 10:30; Status DC Oxycodone HCl (OxyCONTIN) 20 mg Q12HR PO Last administered on 07/31/17 08:43 ; Start 07/30/17 at 10:30 Isosorbide Mononitrate (Imdur) 60 mg DAILY PO Last administered on 07/31/17 08:45; Start 07/31/17 at 09:00 Simvastatin (Zocor) 40 mg QHS PO Last administered on 07/30/17 20:20; Start 07/30/17 at 21:00 Isosorbide Mononitrate (Imdur) 30 mg 1X ONCE PO Last administered on 11:57; Start 07/30/17 at 11:30; Stop 07/30/17 at 11:31; Status DC Losartan Potassium (Cozaar) 50 mg DAILY PO ; Start 07/31/17 at 09:00; Stop at 09:00; Status DC Furosemide (Lasix) 40 mg DAILY PO Last administered on 07/31/17 08:43; Start 07/31/17 at 09:00 Sacubitril/ Valsartan (Entresto 49 Mg-51 Mg) 2 tab BID PO Last administered on 07/31/17 08:42; Start 07/30/17 at 12:30 Regadenoson (Lexiscan) 0.4 mg 1X ONCE IV Last administered on 07/30/17 13:42 ; Start 07/30/17 at 12:15; Stop 07/30/17 at 12:16; Status DC Lidocaine (Lidoderm) 1 patch DAILY TD Last administered on 07/31/17 08:49; Start 07/30/17 at 15:30 Morphine Sulfate 4 mg PRN Q2HR PRN IV PAIN; Start 07/30/17 at 15:00 Active Scripts Active Reported Oxycontin (Oxycodone HCl) 20 Mg Tab.er.12h 20 Mg PO BID Entresto 97 mg-103 mg Tablet (Sacubitril/Valsartan) 1 Each Tablet 1 Each PO BID Bupropion Hcl Sr (Bupropion Hcl) 150 Mg Tablet.er 1 Tab PO DAILY Percocet 10-325 Mg Tablet (Oxycodone/Acetaminophen) 1 Each Tablet 1 Tab PO QID Lyrica (Pregabalin) 200 Mg Capsule 1 Cap PO TID Isosorbide Mononitrate Er (Isosorbide Mononitrate) 30 Mg Tab.er.24h 1 Tab PO DAILY Imipramine Hcl 50 Mg Tablet 50 Mg PO BID Cymbalta (Duloxetine Hcl) 60 Mg Capsule.dr 1 Cap PO DAILY Abilify (Aripiprazole) 20 Mg Tablet 20 Mg PO HS Amaryl (Glimepiride) 1 Mg Tablet 2 Tab PO BID NITROGLYCERIN SubLingual (Nitroglycerin) 0.4 Mg Tab.subl 0.4 Mg SL PRN Zanaflex (Tizanidine Hcl) 4 Mg Tablet 4 Mg PO TID Metoprolol Tartrate 50 Mg Tablet 50 Mg PO BID Simvastatin 20 Mg Tablet 20 Mg PO DAILY Tamsulosin Hcl 0.4 Mg Cap.er.24h 0.4 Mg PO DAILY Klor-Con M20 (Potassium Chloride) 20 Meq Tab.er.prt 20 Meq PO DAILY Lasix (Furosemide) 40 Mg Tablet 40 Mg PO DAILY Aspirin Buffered 325 Mg Tab (Aspirin/Calcium Carbonate/Mag) 325 Mg Tablet 325 Mg PO DAILY Vitals/I & O Vital Sign - Last 24 Hours 07/30/17 07/30/17 07/30/17 07/30/17 11:57 11:57 11:59 12:55 Pulse 87 87 87 B/P (MAP) 130/83 130/83 130/83 O2 Delivery Room Air 07/30/17 07/30/17 07/30/17 07/30/17 14:00 14:41 17:20 19:51 Temp 98.6 98.6 98.6 98.6 Pulse 93 70 Resp 18 17 B/P (MAP) 142/80 (100) 159/89 (112) Pulse Ox 96 95 O2 Delivery Room Air Room Air Room Air Room Air 07/30/17 07/30/17 07/30/17 07/30/17 20:00 20:21 20:22 20:23 Pulse 74 76 Resp 20 B/P (MAP) 137/89 137/89 O2 Delivery Room Air 07/30/17 07/31/17 07/31/17 07/31/17 23:26 00:23 03:30 07:29 Temp 98.7 98.0 97.4 98.7 98.0 97.4 Pulse 59 54 78 Resp 18 20 18 20 B/P (MAP) 154/91 (112) 140/75 (96) 152/84 (106) Pulse Ox 94 95 O2 Delivery Room Air Room Air Room Air 07/31/17 07/31/17 07/31/17 07/31/17 07:48 08:42 08:43 08:45 Pulse 78 78 B/P (MAP) 152/84 152/84 Pulse Ox 95 O2 Delivery Room Air Room Air 07/31/17 07/31/17 07/31/17 07/31/17 08:46 08:47 09:27 09:46 Pulse 78 B/P (MAP) 152/84 Pulse Ox 95 95 O2 Delivery Room Air Room Air Room Air Intake and Output 07/30/17 07/30/17 07/31/17 15:00 23:00 07:00 Intake Total 1000 ml 420 ml Output Total 700 ml Balance 1000 ml -280 ml PINO SOLIS MD Jul 31, 2017 11:30
[2017-07-31] MEDS ORDERED: SIMVASTATIN 20 MG TABLET PO SCH (21:00)
== END 2017-07-31 12:00 | disposition home or self-care (01) | DRG 302 ==
LOC: 2 NORTH 04:40
PROVIDERS: ADMIT Internal Medicine; ATTEND Internal Medicine
DX: I25.119 Atherosclerotic heart disease of native coronary artery with unspecified angina pectoris (principal); I50.23 Acute on chronic systolic (congestive) heart failure; E11.9 Type 2 diabetes mellitus without complications; I11.0 Hypertensive heart disease with heart failure; E78.5 Hyperlipidemia, unspecified; F17.210 Nicotine dependence, cigarettes, uncomplicated; F31.9 Bipolar disorder, unspecified; M54.5 Low back pain; I25.5 Ischemic cardiomyopathy; K21.9 Gastro-esophageal reflux disease without esophagitis; M51.36 Other intervertebral disc degeneration, lumbar region; N40.0 Benign prostatic hyperplasia without lower urinary tract symptoms; G89.29 Other chronic pain; I25.2 Old myocardial infarction; Z79.899 Other long term (current) drug therapy; Z87.01 Personal history of pneumonia (recurrent); Z95.1 Presence of aortocoronary bypass graft; Z95.810 Presence of automatic (implantable) cardiac defibrillator; Z88.8 Allergy status to other drugs, medicaments and biological substances
CPT/HCPCS: 36415; 78452; 80053; 80061; 82962; 83735; 84484; 85025; 93017; 93306; 96374; 96375; 96376; A9500; J2785

== ENCOUNTER → 2018-06-16 | Outpatient (CLI) | payer OTHER ==
[~2018-06-16] MED LIST changes: +ARIP20TA5 PO; +BUPR150T11 PO; +CONTRAST GIVEN. MC PRN; +FERR15DR19 PO; -FERR15DR4 PO; +GLIM1TAB PO; +IMIP50TA3 PO; +IOHEXOL 180 MG/ML 10 ML VIAL. IT ONE; +ISOS30TA4 PO; +LIDOCAINE WITH 8.4% SOD BICARB 3 ML DISP.SYRIN. INJ ONE; +OXYC20TA34 PO; +PREG200C PO; +SACU1TAB4 PO
[2018-06-16 09:25] LABS: CREATININE 1.3 mg/dL (0.7-1.3); GFR 55.8
--- NOTE | 2018-06-16 12:19 | RAD ---
Lumbar myelogram, 06/16/2018: History: Right leg pain, herniated disc Under local anesthesia, aseptic conditions and fluoroscopic guidance a lumbar puncture was performed through the laminectomy defect at the L2-3 level utilizing a 25-gauge spinal needle. Good clear CSF flow was obtained following which 14 cc of Omnipaque 180 was injected into the thecal sac. The spinal needle was then removed and hemostasis obtained. Appropriate digital imaging was then performed. 2.4 minutes of fluoroscopy time was utilized. 13 fluoroscopic spot images were recorded. The patient tolerated the procedure well and was sent to CT in good condition. The following findings are delineated on the myelogram: 1. There are bilateral pedicle screws in place at L2, L3 and L4 attached to longitudinally oriented posterior fixation rods. Partially radiopaque disc spacers are present at L2-3 and L3-4. Spinal stimulator leads extend into the thoracic spinal canal, incompletely visualized on these images. 2. There is moderate degenerative disc disease and mild anterior extradural defects at multiple levels. No high-grade central spinal stenosis is evident. 3. Standing lateral views in flexion and extension demonstrate mild retrolisthesis at L2-3. No instability is seen. 4. There is poor opacification of the nerve root sleeves bilaterally in the lower lumbar spine. CT of the lumbar spine-post myelogram, 06/16/2018: Multidetector CT imaging was performed with multiplanar reconstructions produced. The following findings are delineated: 1. At L1-2 there is is minimal posterior disc bulging on the left. The central spinal canal and neural foramina are well-maintained. 2. At L2-3 there is severe disc space narrowing with marginal spurring and slight retrolisthesis. A laminectomy defect is present posteriorly. Artifacts arising from the above-described fixation devices degrade image quality at and inferior to this level. The central spinal canal is well maintained. There is mild inferior foraminal narrowing bilaterally. 3. At L3-4 there is also posterior spurring producing mild inferior foraminal narrowing bilaterally. The central spinal canal is well maintained. 4. At L4-5 there is a small posterior disc protrusion laterally on the right. This produces moderate encroachment upon the inferior aspect of the right neural foramen. The central spinal canal is well maintained. 5. And L5-S1 there is considerable disc space narrowing with a vacuum disc phenomena and mild posterior marginal spurring. There are mild degenerative changes involving the facet joints. The combination of findings is causing moderate bony foraminal narrowing bilaterally. The central spinal canal is well maintained. IMPRESSION: 1. Moderate multilevel degenerative change as described above. 2. Previous spinal fusion and instrumentation from L2 through L4 with no significant central spinal stenosis. 3. Small posterior disc protrusion on the right at L4-5 encroaching upon the right neural foramen. 4. Moderate bilateral bony foraminal narrowing at L5-S1 due to spurring. PQRS Compliance Statement: One or more of the following individualized dose reduction techniques were utilized for this examination: 1. Automated exposure control 2. Adjustment of the mA and/or kV according to patient size 3. Use of iterative reconstruction technique
== END | disposition home or self-care (01) ==
LOC: RAD 08:47
PROVIDERS: ATTEND Neurological Surgery
DX: M51.26 Other intervertebral disc displacement, lumbar region (principal); M51.36 Other intervertebral disc degeneration, lumbar region; M47.896 Other spondylosis, lumbar region; M48.07 Spinal stenosis, lumbosacral region
CPT/HCPCS: 36415; 72132; 72265; 82565; 84520; Q9965

== ENCOUNTER → 2018-08-22 | Outpatient (CLI) | payer OTHER ==
[~2018-08-22] MED LIST changes: +ASPI325T8 PO; -CONTRAST GIVEN. MC PRN; +DOCU-109 PO; -HYDR-2758 PO; +HYDR-2761 PO; -IOHEXOL 180 MG/ML 10 ML VIAL. IT ONE; -LIDOCAINE WITH 8.4% SOD BICARB 3 ML DISP.SYRIN. INJ ONE; -OXYC-328 PO; +OXYC-411 PO; -OXYC10TA45 PO; +OXYC10TA46 PO; +OXYC1TAB22 PO
--- NOTE | 2018-08-22 15:27 | EKG ---
[facility] [address] [place] [address] Test Date: 2018-08-22 Test Time: 15:24:27 Pat Name: UZIEL HARPER Department: Room: Gender: M [employer]: AT : 1955 Requested By: ADA MARLEY Order Number: [id number] Reading MD: Burak Friedman Measurements Intervals [place] Rate: 76 P: HI: QRS: -10 QRSD: 102 T: 89 QT: 380 QTc: 432 Interpretive Statements SINUS RHYTHM VENTRICULAR PREMATURE COMPLEX(ES) LEFTWARD AXIS QRS(T) CONTOUR ABNORMALITY CONSIDER ANTEROSEPTAL MYOCARDIAL DAMAGE CONSISTENT WITH INFERIOR INFARCT PROBABLY OLD T ABNORMALITY IN HIGH LATERAL LEADS ABNORMAL ECG Electronically Signed On 08-23-2018 16:18:34 ORNAMENTER by Burak Friedman
== END | disposition home or self-care (01) ==
LOC: SURGPAT 13:27
PROVIDERS: ATTEND Neurological Surgery
DX: Z01.818 Encounter for other preprocedural examination (principal); M51.16 Intervertebral disc disorders with radiculopathy, lumbar region; I49.3 Ventricular premature depolarization; R94.31 Abnormal electrocardiogram [ECG] [EKG]
CPT/HCPCS: 36415; 87641; 93005

== ENCOUNTER → 2018-08-26 | Outpatient (CLI) | payer OTHER ==
--- NOTE | 2018-08-26 12:39 | CARD ---
MR#: [id number] Date of Study: 08/26/2018 Ordering Physician: DEREK SINGH, Referring Physician: DEREK SINGH, Tech: Ashly Chowdary TERRELL APPROVED REPORT EXAM: Two-dimensional and M-mode echocardiogram with Doppler and color Doppler. Other Information Quality : Technically LimitedHR: 69bpm Rhythm : NSRTechnically limited study due to body habitus. INDICATION Cardiomyopathy 2D DIMENSIONS RVDd4.0 (2.9-3.5cm)Left Atrium(2D)3.5 (1.6-4.0cm) IVSd1.0 (0.7-1.1cm)Aortic Root(2D)4.3 (2.0-3.7cm) LVDd5.9 (3.9-5.9cm)LVOT Diameter2.5 (1.8-2.4cm) PWd1.1 (0.7-1.1cm)LVDs4.9 (2.5-4.0cm) FS (%) 16.6 %SV58.5 ml LVEF(%)34.2 (>50%) M-Mode DIMENSIONS Left Atrium(MM)3.51 (2.5-4.0cm)Aortic Root4.25 (2.2-3.7cm) Aortic Valve AoV Peak Porfirio.108.9cm/sAoV VTI22.6cm AO Peak GR.4.7mmHgLVOT Peak Porfirio.59.1cm/s AO Mean GR.2mmHgAVA (VMAX)2.67cm2 FITO (VTI)2.69bs3BF P 1/2 Tlkn670xp Mitral Valve MV E Zpxvvgzd87.4cm/sMV DECEL QQCL199pf MV A Cuqfnmhv34.9cm/sE/A Ratio0.6 MV A Mglyorqj512xz Pulmonary Valve PV Peak Rwfwiaom34.2cm/s LEFT VENTRICLE The Left Ventricle is borderline dilated. There is normal left ventricular wall thickness. The left v entricular ejection fraction is moderately impaired. The Ejection Fraction is 30-35%. There is global hypokinesis of the left ventricle. Transmitral Doppler flow pattern is Grade I-abnormal relaxation p attern. RIGHT VENTRICLE The right ventricle is mildly dilated. There is normal right ventricular wall thickness. Systolic fun ction is mildly reduced. ATRIA The left atrium size is normal. The right atrium size is normal. The interatrial septum is intact wit h no evidence for an atrial septal defect or patent foramen ovale as noted on 2-D or Doppler imaging. AORTIC VALVE The aortic valve is calcified but opens well. The aortic valve is trileaflet. Doppler and Color Flow revealed trace aortic regurgitation. There is no significant aortic valvular stenosis. MITRAL VALVE The mitral valve is normal in structure and function. There is no evidence of mitral valve prolapse. There is no mitral valve stenosis. Doppler and Color Flow revealed no mitral valve regurgitation note d. TRICUSPID VALVE The tricuspid valve is normal in structure and function. Doppler and Color Flow revealed no tricuspid valve regurgitation noted. There is no tricuspid valve prolapse or vegetation. There is no tricuspid valve stenosis. PULMONIC VALVE Pulmonic valve not well visualized. GREAT VESSELS The aortic root is mildly enlarged. The ascending aorta is normal in size. The IVC is normal in size and collapses >50% with inspiration. PERICARDIAL EFFUSION There is no evidence of significant pericardial effusion. Critical Notification Critical Value: No <Conclusion> The left ventricular ejection fraction is moderately impaired. The Ejection Fraction is 30-35%. Transmitral Doppler flow pattern is Grade I-abnormal relaxation pattern. There is no evidence of significant pericardial effusion. Signed by : Festus Rodrigues, Electronically Approved : 08/26/2018 12:37:46
== END | disposition home or self-care (01) ==
LOC: ECHO 08:54
PROVIDERS: ATTEND Internal Medicine Cardiovascular Disease
DX: I42.8 Other cardiomyopathies (principal)
CPT/HCPCS: 93306

== ENCOUNTER 2018-08-29 07:14 | Day surgery (SDC) | payer OTHER ==
--- NOTE | 2018-08-26 12:05 | PREOP HP ---
DATE OF SERVICE: 08/29/2018. DATE OF SURGERY: 08/29/2018. HISTORY OF PRESENT ILLNESS: The patient is a pleasant 62-year-old who underwent lumbar fusions in 2005 and 2007 in [place], [place] and did well. He then abruptly developed sharp, severe pain, which radiated from his right lower back to the right hip and right anterior thigh. He says he can feel like his right leg will give out. The problem began with him rolling over in bed and was abrupt and severe. He rates his pain as a 4-5/10. Increasing activities or changes in the weather increase his pain. Sitting seems to help. He takes oxycodone and OxyContin. He has been using a walker because his right leg is weak. PAST MEDICAL HISTORY: Arthritis, chest pain, heart attack or failure, pacemaker, hypertension, diabetes. PAST SURGICAL HISTORY: Lumbar discectomy in 2005, lumbar discectomy in 2007. SOCIAL HISTORY: Employed as a toolroom machinist. . Denies exercising. Drinks alcohol 1-2 times per year. History of alcohol abuse. Drinks coffee daily. ALLERGIES: NEURONTIN. CURRENT MEDICATIONS: Aspirin, omeprazole, bupropion, duloxetine, Entresto, glimepiride, imipramine, isosorbide mononitrate, Lyrica, meloxicam, metoprolol, nitro, oxycodone and OxyContin. REVIEW OF SYSTEMS: A 12-point review of systems was obtained and is noncontributory except that mentioned above. PHYSICAL EXAMINATION: NEUROSURGERY EXAMINATION: GENERAL APPEARANCE: Alert, pleasant, no acute distress. HEAD: Normocephalic and atraumatic. SKIN: Warm and dry. MUSCULOSKELETAL: Lumbar paraspinal muscle bulk is normal, restricted range of motion of lumbar spine, mild tenderness of lower lumbar spine with palpation, normal range of motion of the lower extremities bilaterally. EXTREMITIES: No clubbing, clubbing, or edema. NEUROLOGIC: Alert, oriented x 3, normal recent and remote memory on neurologic testing. Strength is 5/5 in upper and lower extremities bilaterally except for trace right hip flexion and trace quadriceps function on the right. There is decreased sensation over the right anterior thigh and leg. Reflexes are trace except for absent right knee jerk. Uses a walker. IMAGING: I reviewed a lumbar myelogram and post-myelogram CT scan. On that study, the fusion from L2-L4 is well seen. There is neural foraminal narrowing at the right at L4-L5 due to posterior disc protrusion with right neural foramen. ASSESSMENT: Intervertebral disc disorders with radiculopathy, lumbar region. PLAN: I believe the foraminal disc protrusion at L4-L5 on the right is responsible for much of his weakness. I discussed treatment options with him. At this point, based on the profound functional impairment, my recommendation is that we move forward with a lumbar microsurgery and perform a transforaminal decompression at this level. It maybe that in the future, he require his fusion be extended across the level, but first and foremost I feel we should work on fully decompressing the right L4 root and look for functional recovery. I did discuss this with him and the rationale. The technique and risks were discussed as well as the expected postoperative course. He understands and would like to proceed. We will make the arrangements. ADA MARLEY MD DR: ELDER/john JOB#: [id number] / [id number] HERBER
[~2018-08-29] VITALS: Ht 182.9 cm; Wt 102.1 kg
[~2018-08-29 07:14] MED LIST changes: +BACITRACIN 50,000 UNIT in IV NORMAL SALINE 1000ML BAG 1,000 ML IRR ONE; +BUPIVAC MPF-EPI 0.5%-1:200000 30 ML VIAL. ONE; -DOCU-109 PO; +GELATIN SPONGE SIZE 100. ONE; +IV RINGERS,LACTATED 1000ML 1,000 ML IV SCH; +KETOROLAC 60 MG/2 ML INJ FOR OR. ONE; +LIDOCAINE 1% PF 2 ML VIAL. ID PRN; +ONDANSETRON PF 4 MG/2 ML VIAL. IV PRN; +PROCHLORPERAZINE 10 MG/2 ML VIAL. IV PRN; +THROMBIN TOPICAL 20,000 UNIT SPRAY.SYRN KIT TP ONE; +fentaNYL PF VIAL 100 MCG/2 ML VIAL IV PRN
[2018-08-29] MEDS ORDERED: PROPOFOL 0 ML IV ONE (07:26)
[2018-08-29] MEDS ORDERED: REMIFENTANIL 2 MG VIAL. IV ONE (07:26)
[2018-08-29] MEDS ORDERED: LIDOCAINE 2% PF Vial for OR 5 ML VIAL. ONE (07:26)
[2018-08-29] MEDS ORDERED: fentaNYL PF VIAL 100 MCG/2 ML VIAL ONE (07:26)
[2018-08-29] MEDS ORDERED: ROCURONIUM 50 MG/5 ML VIAL. ONE (07:26)
[2018-08-29] MEDS ORDERED: SUCCINYLCHOLINE 200 MG/10 ML VIAL. ONE (07:26)
[2018-08-29] MEDS ORDERED: PROPOFOL 50 ML IV ONE ×2 (07:26→09:55)
[2018-08-29] MEDS ORDERED: 0.9 % SODIUM CHLORIDE 20 ML VIAL. IJ ONE (07:27)
[2018-08-29] MEDS ORDERED: ETOMIDATE 20 MG/10 ML VIAL. IV ONE (08:19)
[2018-08-29] MEDS ORDERED: DEXAMETHASONE SOD PHOS 20 MG/5 ML VIAL. ONE (09:16)
[2018-08-29] MEDS ORDERED: DESFLURANE > 120 MINUTES IH ONE (09:16)
[2018-08-29] MEDS ORDERED: ONDANSETRON PF 4 MG/2 ML VIAL. ONE (09:29)
[2018-08-29] MEDS ORDERED: PHENYLEPHRINE in 0.9% NACL PF 1 MG/10 ML SYRINGE. IV ONE (09:54)
--- NOTE | 2018-08-29 11:10 | DISCH ---
DISCHARGE INSTRUCTIONS Condition on Discharge Condition on Discharge: Stable Activity After Discharge Activity Instructions for Disc: Resume previous activity, Activity as tolerated Bathing Instructions: Shower-keep dressing dry, No Tub Bath until see Lifting Instructions after Dis: No heavy lifting, No pulling or pushing Weight Bearing Status after Di: No restrictions Diet after Discharge Diet after Discharge: Cardiac, No Added Sugar Diet Texture: Regular Wound Incision Care Wound/Incision Care: Ice to area for comfort, Change dressing Other wound/incision instructi: may remove dressing in 48 hours if dry then may shower, no soaking Checks after Discharge Checks after discharge: Check blood sugar, ac/hs Contacting the DRNile after DC Call your doctor for: Concerns you may have Follow-Up Follow up with: Dr. Mancera's nurse in 2 weeks [phone] Treatment/Equipment after DC Adaptive Equipment Issued: ADA Roche MD Aug 29, 2018 11:09
[2018-08-29] MEDS ORDERED: DOCU-109 PO (11:11)
[2018-08-29] MEDS: fentaNYL PF VIAL 100 MCG/2 ML VIAL IV PRN ×2 (11:22→11:36)
[2018-08-29] MEDS ORDERED: oxyCODONE/APAP 10/325 1 TAB TABLET PO ONE (11:45)
[2018-08-29 12:05] VITALS: BP 134/77
--- NOTE | 2018-08-31 09:11 | PATHOLOGY ---
[facility] Accession Number: [id number] . 01 Material submitted: . LUMBAR DECOMPRESSION AND DISC . 01 Clinical history: . Far lateral lumbar herniated disc and radiculopathy . 02 Diagnosis: Segments of fibrocartilaginous, adipose, and skeletal muscle tissue and bone, lumbar decompression and disc: - Degenerative changes of fibrocartilaginous tissue. . (JPM:mm; 08/30/18) [facility]/08/30/2018 . 02 Comment: There is no evidence of an acute inflammatory process or malignancy. . (JPM:mml; 08/30/18) . 02 Electronically signed: . Mani Garibay MD, Pathologist NPI- [id number] . 01 Gross description: . Received in formalin labeled "Brian Antonio, lumbar decompression and disc," are several pieces of glistening, fibrous tissue measuring 4.7 x 3.0 x 1.9 cm in aggregate dimensions, containing small fragments of possible bone. The tissue submitted representatively in cassette A1, following decalcification. (TSD; 08/29/2018) TOB/TOB . 02 Pathologist provided ICD-10: M51.36 . 02 CPT . 953182, [id number] Specimen Comment: A courtesy copy of this report has been sent to Specimen Comment: [phone], . Specimen Comment: Report sent to / DR JONES Performed at: 01 [facility] [address], [place], [place] [id number] MD Guilherme Garcia MD Phone: [phone] Performed at: 02 [facility] [id number] MD Mani Garibay MD Phone: [phone]
--- NOTE | 2018-09-01 16:24 | OP ---
DATE OF SURGERY: 08/29/2018 PREOPERATIVE DIAGNOSIS: Foraminal disc herniation, L4-L5, right with severe right lumbar radiculopathy. POSTOPERATIVE DIAGNOSIS: Foraminal disc herniation, L4-L5, right with severe right lumbar radiculopathy. OPERATION PERFORMED: Transfacet exposure with removal of foraminal disc herniation, L4-L5, right. The operation was done with EMG monitoring, fluoroscopy, microscopic dissection. SURGEON: Cam Marley M.D. MUSIC STORE MANAGER: Valeria Perez who assisted with the exposure, microdiscectomy as well as the closure. OPERATIVE INDICATIONS: The patient is a very pleasant 62-year-old man who had undergone an instrumented lumbar fusion about 10 years ago and had done well. He then developed very severe pain in his back, which would radiate into his right anterior thigh, and was treated conservatively and did not improve. I had a lumbar myelogram performed, in which I could visualize the herniated disc at L4-L5 on the right within the right foramen and I recommended lumbar microsurgery at this level. I explained to him that in the future, he may require further surgery with extension of his instrumented fusion at this level but at this point, I felt the most prudent course would be to decompress the root and see if can get some relief. He understood the surgery. He understood the risks. He understood the technique. He wished to go ahead. DESCRIPTION OF PROCEDURE: Following general endotracheal anesthesia, the patient was positioned prone on the Bucky table. Lumbar region was prepped and draped in standard fashion. RADHA hose and AV impulse boots were applied for DVT prophylaxis. The microscope was draped. Fluoroscopy was draped and brought into the field. Monitoring was established. Ancef 2 g was given less than 1 hour prior to the initiation of surgery and continued at 4-hour interval. An incision was made below his previous incision over the L4-L5 interspace. I dissected down skin and subcutaneous tissue and placed a Bradford micro disc retractor. I brought in the microscope and the remainder of surgery was done with the microscope using microscopic technique. I brought in the high speed air drill and bur down a hemilaminotomy and then worked laterally visualizing the L4 root at L4-L5 on the right side and following the L4 root laterally. I did perform a small partial foraminotomy. I removed the ligamentum flavum and assured myself that this was well decompressed medially, but it became immediately apparent there was a large focal disc herniation beneath the L4 root and I gently using micro instruments freed this from the inferior aspect of the root and teased this back and removed it. Superiorly, there were 2 other fragments which were beneath the root and slightly farther superiorly which were again compressing the nerve roots and then I found the third fragment, which had passed out laterally, further out along the root at the far end of the foramen and gently teased back and removed this herniated disc fragment. As I worked, the L4 root moved into a normal position and became lax and I felt that I had an excellent decompression. I irrigated copiously with antibiotic solution. I did use small amounts of bone wax and bipolar cautery where necessary. I removed the retractor, obtained hemostasis in the muscle and I closed the wound in layers with absorbable suture. The skin was closed with 4-0 subcuticular stitch. The operation went very well. The patient awakened and eventually taken to recovery room and there was immediate improvement in his leg pain. I was quite pleased with the surgery. CAM MARLEY MD DR: ELDER/john JOB#: [id number] / [id number] HERBER
== END 2018-08-29 13:33 | disposition home or self-care (01) ==
LOC: SURG 07:14
PROVIDERS: ATTEND Neurological Surgery
DX: M51.16 Intervertebral disc disorders with radiculopathy, lumbar region (principal); I10 Essential (primary) hypertension; E11.9 Type 2 diabetes mellitus without complications; M19.90 Unspecified osteoarthritis, unspecified site; Z98.890 Other specified postprocedural states; Z95.0 Presence of cardiac pacemaker; Z79.82 Long term (current) use of aspirin; Z79.84 Long term (current) use of oral hypoglycemic drugs; Z79.899 Other long term (current) drug therapy
CPT/HCPCS: 63030; 76000; 82962; 88304; 88311; 97161; A7015; J0330; J0690; J1100; J1885; J2001; J2370; J2405; J2704; J3010; J3490; J7030; J7120